=== PATIENT | male | born 1965 | race Caucasian/White ===

== ENCOUNTER 2018-01-10 08:41 | Emergency (ER) | payer OTHER ==
[~2018-01-10] VITALS: Ht 188 cm; Wt 120.5 kg
[2018-01-10] MEDS ORDERED: METOPROLOL TART75 MG PO (08:52)
[2018-01-10 09:35] VITALS: BP 160/110
== END 2018-01-10 09:32 | disposition home or self-care (01) ==
LOC: ED 08:41
DX: S61.214A Laceration without foreign body of right ring finger without damage to nail, initial encounter (principal); W26.0XXA Contact with knife, initial encounter; Y99.0 Civilian activity done for income or pay; Z79.899 Other long term (current) drug therapy; Z23 Encounter for immunization
CPT/HCPCS: 90715

== ENCOUNTER 2018-01-18 16:23 | Emergency (ER) | payer OTHER ==
[~2018-01-18 16:23] MED LIST: METOPROLOL TART75 MG PO
[2018-01-18 16:46] VITALS: BP 160/110
== END 2018-01-18 16:40 | disposition home or self-care (01) ==
LOC: ED 16:23
DX: Z48.02 Encounter for removal of sutures (principal)